=== PATIENT | male | born 2005 | race Caucasian/White ===

== ENCOUNTER 2024-08-16 11:53 | Emergency (ER) | payer OTHER, SELFPAY ==
[2024-08-16 12:17] VITALS: BP 131/80; PULSE 70; RESP 18; TEMP 36.9; O2SAT 99; BMI 27.4
--- NOTE | 2024-08-16 12:21 | ED_ITS ---
HPI - General Adult General Chief complaint: Laceration/Wound Stated complaint: cut on right hand-work Time Seen by Provider: 08/16/24 12:09 History of Present Illness HPI narrative: Patient was cleaning duct work at laceration with metal piece. 19-year-old man presenting to the emergency department following a laceration sustained to his right hand. 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 Has covered it up. No noted loss and function. Just thought he should get it checked out. Related Data Home Medications ?Medication ?Instructions ?Recorded ?Confirmed No Known Home Medications 08/16/24 08/16/24 Allergies Allergy/AdvReac Type Severity Reaction Status Date / Time No Known Drug Allergies Allergy Verified 08/16/24 12:17 Review of Systems Status of ROS: Reports: 6 or more systems reviewed and unremarkable except as noted in History and below PFSH PFS Social History Smoking Status: Smoker, status unknown Non-prescribed substance use: denies use Exam Narrative: Exam Narrative: Pleasant. NAD. Breathing easily. Examination of the finger in question shows to puncture sites on the dorsal middle phalanx. Able to flex and extend against resistance. The uppermost laceration opens subtly and loses a little blood. Const: Vital Signs, click to edit/add: Vital Signs - 24 hr 08/16/24 12:17 Temperature 98.5 F Respiratory Rate 18 Blood Pressure [Ri ght Upper Arm] 131/80 Pulse Oximetry 99 Oxygen Delivery Me thod Room Air Documenting provider has reviewed patient's vital signs: yes Course Vital Signs Vital signs: Initial Vital Signs Temperature 98.5 F 08/16/24 12:17 Temperature Source Temporal Artery Scan 08/16/24 12:17 Pulse Rate 70 08/16/24 12:17 Respiratory Rate 18 08/16/24 12:17 Blood Pressure 131/80 08/16/24 12:17 Blood Pressure Mean 97 08/16/24 12:17 Pulse Oximetry 99 08/16/24 12:17 Oxygen Delivery Method Room Air 08/16/24 12:17 Vital Signs Temperature 98.5 F 08/16/24 12:17 Pulse Rate 70 08/16/24 12:17 Respiratory Rate 18 08/16/24 12:17 Blood Pressure 131/80 08/16/24 12:17 Pulse Oximetry 99 08/16/24 12:17 Oxygen Delivery Method Room Air 08/16/24 12:17 Temperature 98.5 F 08/16/24 12:17 Pulse Rate 70 08/16/24 12:17 Respiratory Rate 18 08/16/24 12:17 Blood Pressure 131/80 08/16/24 12:17 Pulse Oximetry 99 08/16/24 12:17 Oxygen Delivery Method Room Air 08/16/24 12:17 Medical Decision Making MDM Narrative Medical decision making narrative: Does not actually gap significantly with flexion at this upper puncture/lace ration near the PIP. Cleansed copiously with Shur-Clens solution. I think covering with Dermabond after cleaning will be adequate for these punctures particularly the uppermost. I did apply 3 layers. Appears to hold the wound together well. See patient discharge plan for further discussion Discharge Plan Discharge Clinical Impression: Finger laceration Additional Instructions: Certainly need to clean hands but maybe avoid soaking this finger while the Dermabond is in place over this next week. Watch for spreading redness after 2 days, marked increase in pain/swelling/heat. Prescriptions: No Action No Known Home Medications Stand Alone Forms: [facility] Info Instructions
== END 2024-08-16 13:29 | disposition home or self-care (01) ==
LOC: ED 13:05
PROVIDERS: Emergency Provider Family Medicine
DX: S61.212A Laceration without foreign body of right middle finger without damage to nail, initial encounter (principal); W26.8XXA Contact with other sharp object(s), not elsewhere classified, initial encounter; Y99.0 Civilian activity done for income or pay
CPT/HCPCS: 12001; 99282; 99284